=== PATIENT | female | born 1950 | race Caucasian/White ===

== ENCOUNTER 2018-05-11 06:16 | Inpatient (IN) ==
[2018-05-11] MEDS ORDERED: ATIVAN ONE (07:06)
[2018-05-11] MEDS ORDERED: ATIVAN IV ONE (07:10)
--- NOTE | 2018-05-11 07:24 | PROVIDER DOCUMENTATION ---
HPI-Neurological Disorder - General Chief Complaint: Seizure Stated Complaint: "seizure" Time Seen by Provider: 05/11/18 07:19 Unable to obtain history due to:: altered Allergies/Adverse Reactions: Patient Allergies Allergy/AdvReac Type Severity Reaction Status Date / Time amitriptyline Allergy Severe Unknown Verified 02/01/18 22:34 nicotine Allergy Unknown Verified 05/11/18 06:25 Home Medications: Home Medication List Medication Instructions Recorded Confirmed Last Taken Type Levothyroxine Sodium 75 mcg PO DAILY #30 tab 07/10/17 05/11/18 Unknown Rx Gabapentin [Neurontin] 200 mg PO BID #30 cap 09/09/17 05/11/18 Unknown Rx Pantoprazole [Protonix] 40 mg PO DAILY 02/01/18 05/11/18 Unknown History - History of Present Illness-Neuro Nature of Presenting Problem: Presents to the with EMS who states that patient had a seizure. No history was obtained from patient as upon the start of my shift EMS was gone and patient had a seizure and remained post ictal for long period afterwards. Per nursing staff, EMS stated patient does not havea history of seizures but is a chronic alcoholic. Review of Systems - Adult - REVIEW OF SYSTEMS - ADULT ROS:: unobtainable per condition Constitutional: reports: see HPI Past History - Adult - PAST MEDICAL HISTORY-ADULT Review of Records: reports: Old Records Reviewed, Nursing Assessment Review, Medications Reviewed Major Childhood Illnesses: reports: denies history Cardiovascular: reports: denies history Respiratory: reports: asthma, COPD Gastrointestinal: reports: denies history Obstetrical/Gynecological: reports: denies history Genitourinary: reports: denies history Musculoskeletal: reports: denies history, other (neuropathy) Neurological: reports: CVA, Seizures/Epilepsy Psychiatric: reports: depression, other (SI) Endocrine/Immune: reports: thyroid disorder Other Conditions: reports: denies history - PRIOR SURGERIES/PROCEDURES Surgical/Procedure History: reports: breast (biopsy), other (R oophrectomy) - IMMUNIZATION STATUS Childhood Immunizations: See Nurse Assessment Flu Vaccine: See Nurse Assessment - FAMILY HISTORY Family History: reviewed, not pertinent Physical Exam- Neurological - Physical Exam-Neuro Initial Vital Signs Reviewed: Yes General Appearance: other (actively seizing tonic clonic, then postictal. Smells like alcohol) Eye Exam: bilateral eye: normal inspection, PERRL HENMT: normocephalic/atraumatic Head Injury: no evidence of injury Neck: supple, normal inspection Respiratory: lungs clear Cardiovascular: regular rate, rhythm, tachycardia Abdominal Exam: normal bowel sounds, soft, distended Extremity: normal inspection Coordination/Gait: other (unable to obtain) Integumentary: warm/dry. negative: jaundice Psych/Mental Status: disheveled Progress - PLAN OF CARE/RESULTS Progress/Plan/Lab Results: Orders Category Date Time Status Admit - [facility] Routine AdmDCTranf 05/11/18 13:21 Active Cardiac Monitoring DIRECTED Care 05/11/18 08:16 Completed IV Insertion ORDERED Care 05/11/18 08:16 Completed Intake and Output-Strict ORDERED Care 05/11/18 13:21 Active Notify MD of + Sepsis Screen NOW Care 05/11/18 08:16 Completed Vital Signs Order Q1H Care 05/11/18 13:21 Completed Z-Document. for Tele Applied ORDERED Care 05/11/18 13:21 Active CHEST-PORTABLE [RAD] Stat Exams 05/11/18 07:[address] HEAD W/O CONTRAST [CT] Stat Exams 05/11/18 07:21 Completed ABG [RESP] Routine Lab 05/11/18 07:15 Completed ACETAMINOPHEN [TDM] Stat Lab 05/11/18 07:51 Completed ALCOHOL BLOOD Stat Lab 05/11/18 07:51 Completed BLOOD CULTURE [BLDCUL] Stat Lab 05/11/18 10:30 Results CBC WITH DIFF [HEME] Stat Lab 05/11/18 06:30 Completed CK PROFILE [SP CHEM] Stat Lab 05/11/18 07:31 Completed COMPREHENSIVE METABOLIC PANEL [CHEM] Stat Lab 05/11/18 07:51 Completed LACTATE, PLASMA [CHEM] Lab 05/11/18 10:30 Completed LACTATE, PLASMA [CHEM] Lab 05/11/18 14:20 Completed LACTATE, PLASMA [CHEM] Stat Lab 05/11/18 07:51 Completed MAGNESIUM [CHEM] Stat Lab 05/11/18 07:31 Completed PROTIME WITH INR [COAG] Stat Lab 05/11/18 07:51 Completed PTT [COAG] Stat Lab 05/11/18 07:51 Completed SALICYLATES [TDM] Stat Lab 05/11/18 07:51 Completed TROPONIN T Stat Lab 05/11/18 07:[address] W/POSS RFLX CULT [URINALYSIS] Stat Lab 05/11/18 08:35 Completed URINE CULTURE [RM] Routine Lab 05/11/18 09:20 [address] S[address]EN [address] Stat Lab 05/11/18 08:35 Completed 0.9% Sodium Chloride Inj [Ns] 1,000 ml Med 05/11/18 08:51 Discontinued IV 999 mls/hr CefTRIAXONE [Rocephin] 1 gm Med 05/11/18 09:27 Discontinued 0.9% Sodium Chloride Inj [Ns] 50 ml IV NOW Chlordiazepoxide [Librium] Med 05/11/18 10:00 Active 50 mg PO Q6H Lorazepam [Ativan] Med 05/11/18 07:06 Discontinued 2 mg .ROUTE .STK-MED ONE Mvi [M.v.i.-12] 10 ml Med 05/11/18 08:51 Discontinued Folic Acid 1 mg Magnesium Sulfate 1 gm Thiamine 100 mg 0.9% Sodium Chloride Inj [Ns] 1,000 ml IV NOW Oxygen Device Stat Oth 05/11/18 08:16 Completed Telemetry [OM.EQ] Routine Oth 05/11/18 13:21 Active Transfer/Admit Order [TRANSFER] Routine Transfer 05/11/18 09:55 Completed Patient with seizure likely due to alcohol withdrawal. She only has a previous history of 1 seizure in the past per EMS and EMR. Her alcohol level is down to 13, however she does smell of ETOH. Her LA is elevated to 9 but this is likely due to her seizure. She also has a UTI but I do not feel that she is acutely septic as she is afebrile, has no WBC and other vitals are stable. She was given 1L NS in the ED and started on a banana bag. She did require a dose of ativan here for her seziures. CT head is negative. Tox screen negative except for benzos which were given in the ED prior to collection of the urine. Spoke to Dr Garcia, boiler control technician hospitalist who accepted patient for admission. Other orders to be placed by their team. Result Diagrams: 05/12/18 05:22 05/12/18 05:22 - XRAY 1 XRAY Study: Chest Impression: See EMR Report (CHEST-PORTABLE - 05/11/2018 INDICATION: AMS COMPARISON: 02/02/2018 FINDINGS: The lungs are normally expanded and clear. Heart size and mediastinal contours are normal. No pneumothorax or pleural effusion. IMPRESSION: Negative exam. Electronically signed by Ruddy Silver 05/11/2018 8:15 AM) - CT/MRI 1 CT Study: Head Impression: See EMR Report (EXAM: CT HEAD W/O CONTRAST HISTORY: seizures, alcoholic TECHNIQUE: Images were obtained from the skull base to vertex without IV contrast as per standard protocol. COMPARISON: 03/12/2017 FINDINGS: Large left parietal encephalomalacia from prior infarct is again identified and unchanged. There is no evidence for acute hemorrhage or infarct by CT. There is atrophy and microvascular disease. There is an air-fluid level left maxillary sinus. No fracture is identified. IMPRESSION: Atrophy and microvascular disease. Stable left parietal encephalomalacia. Air-fluid level left maxillary sinus similar to prior. This exam was performed using automated exposure control, adjustment of mA or kV according to patient size, and/or use of iterative reconstruction technique.) Departure - Departure Date of Disposition Decision: 05/11/18 Time of Disposition Decision: 09:45 DIAGNOSIS: Alcohol withdrawal seizure, UTI (urinary tract infection), Lactic acidosis Disposition: ADMITTED INPATIENT 09 Certified Medical Emergency: Emergent Condition: Fair - Critical Care Note This patient required my direct & personal management of CC.: Yes Total Time (mins): 35 Critical Care Statement: This patient required my direct personal management to treat or rule out processes, the absence of which, could potentiallly result in sudden, clinically significant life or limb threatening deterioration. Attestation - Physician/ SHERIE Attestation Patient care was provided by Advanced Practice Provider:: No The physician spent face to face time with patient:: Yes Advanced Practice Provider documentation review:: Supervising physician onsite and consulted in the evaluation and care of this patient. The physician did have a face to face encounter with the patient.
[2018-05-11 07:48] LABS: BLOOD TYPE ARTERIAL; HCO3-(ACT) 18.6 mmoll (20.0-26.0); METHB 1.1 % (0.0-1.5); O2(CT) 16.6 mL/dL (15.0-23.0); O2HB 93.1 % (95.0-99.0); PCO2(98.6) 36 mmHg (35-45); PO2(98.6) 143 mmHg (60-100); SAMPLE BLOOD; SAO2 99.8 % (95.0-100.0); THB 12.5 g/dL (11.5-17.4)
[2018-05-11 07:50] LABS: ALLEN TEST NO; MODALITY CANNULA
[2018-05-11 08:09] LABS: BASO# 0.02 X1000 (0.0-0.2); BASO% 0.3 % (0.0-0.8); EOS# 0.02 X1000 (0.0-0.7); EOS% 0.3 % (0.0-10.0); IMM GRAN# 0.04 X1000 (0.0-0.04); IMM GRAN% 0.5 % (0.0-0.5); LYMPH# 0.52 X1000 (1.2-3.4); LYMPH% 6.5 % (20.5-51.1); MCH 35.6 PG (27-31); MCHC 36.8 g/dL (33-37); MONO# 1.01 X1000 (0.11-0.59); MONO% 12.7 % (1.7-9.3); MPV 9.4 FL (7.4-10.4); NEUT# 6.34 X1000 (1.4-6.5); NEUT% 79.7 % (42.2-75.2); PLT 145 X1000 (130-400); RBC 3.31 XMIL (4.2-5.4); RDW 12.3 % (11.5-14.5); WBC 8.05 X1000 (4.8-10.8)
--- NOTE | 2018-05-11 08:12 | Diag Imaging Result Doc PS360 ---
EXAM: CT HEAD W/O CONTRAST HISTORY: seizures, alcoholic TECHNIQUE: Images were obtained from the skull base to vertex without IV contrast as per standard protocol. COMPARISON: 03/12/2017 FINDINGS: Large left parietal encephalomalacia from prior infarct is again identified and unchanged. There is no evidence for acute hemorrhage or infarct by CT. There is atrophy and microvascular disease. There is an air-fluid level left maxillary sinus. No fracture is identified. IMPRESSION: Atrophy and microvascular disease. Stable left parietal encephalomalacia. Air-fluid level left maxillary sinus similar to prior. This exam was performed using automated exposure control, adjustment of mA or kV according to patient size, and/or use of iterative reconstruction technique. Electronically signed by Daniela Barrios 05/11/2018 8:10 AM
--- NOTE | 2018-05-11 08:17 | Diag Imaging Result Doc PS360 ---
CHEST-PORTABLE - 05/11/2018 INDICATION: AMS COMPARISON: 02/02/2018 FINDINGS: The lungs are normally expanded and clear. Heart size and mediastinal contours are normal. No pneumothorax or pleural effusion. IMPRESSION: Negative exam. Electronically signed by Ruddy Silver 05/11/2018 8:15 AM
[2018-05-11 08:39] LABS: AGAP 23; ALBUMIN 4.2 g/dL (3.5-5.0); ALKALINE PHOSPHATASE 115 U/L (32-104); BUN 2 mg/dL (8-22); CALCIUM 9.5 mg/dL (8.8-10.2); CHLORIDE 90 mmol/L (98-107); COSMO 262; CREATININE 0.4 mg/dL (0.5-0.9); ESTIMATED GFR > 60; GLUCOSE 117 mg/dL (70-104); GOT 139 U/L (10-30); GPT 69 U/L (10-36); POTASSIUM 3.2 mmol/L (3.5-5.1); SODIUM 132 mmol/L (136-145); TCO2 19 mmol/L (25-35); TOTAL BILIRUBIN < 0.15 mg/dL (0.20-1.00); TOTAL PROTEIN 7.2 g/dL (6.3-8.3)
[2018-05-11 08:47] LABS: ACETAMINOPHEN 0.3 ug/mL (10-30)
[2018-05-11] MEDS ORDERED: NS 1,000 ML IV ONE ×2 (08:51→11:49)
[2018-05-11] MEDS ORDERED: M.V.I.-12 10 ML, FOLIC ACID 1 MG, MAGNESIUM SULFATE 1 GM, THIAMINE 100 MG in NS 1,000 ML IV ONE (08:51)
[2018-05-11 09:16] LABS: BILIRUBIN URINE NEGATIVE (NEGATIVE); BLOOD URINE 2+ (NEGATIVE); CLARITY SL. CLOUDY (CLEAR); COLOR YELLOW; GLUCOSE URINE NEGATIVE (NEGATIVE); KETONE URINE TRACE mg/dL (NEGATIVE); LEUKOCYTES URINE 2+ (NEGATIVE); NITRITE URINE POSITIVE (NEGATIVE); PH URINE 6.5; PROTEIN URINE 1+(30 mg/dL) mg/dL (NEGATIVE); SP GRAVITY URINE 1.015; UROBILINOGEN URINE NORMAL
[2018-05-11 09:20] LABS: URINE BACTERIA 4+ /HFP; URINE EPITHELIAL CELLS <10 /HPF (<10); URINE SOURCE CATH; URINE WBC 20-40 /HPF (<10)
[2018-05-11 09:23] LABS: CK INDEX 2.8 (0.0-2.5); CK-MB 5.15 ng/mL (0.0-5.0)
[2018-05-11 09:24] LABS: UR AMPHETAMINES QUAL NONE DETECTED (NONE DETECT); UR BARBITUATES QUAL NONE DETECTED (NONE DETECT); UR BENZODIAZEPIN QUAL PRESUMPTIVE POSITIVE (NONE DETECT); UR CANNABINOIDS QUAL NONE DETECTED (NONE DETECT); UR COCAINE QUAL NONE DETECTED (NONE DETECT); UR METHADONE QUAL NONE DETECTED (NONE DETECT); UR METHAMPHETAMINE QUAL NONE DETECTED (NONE DETECT); UR OPIATES QUAL NONE DETECTED (NONE DETECT); UR OXYCODONE QUAL NONE DETECTED (NONE DETECT); UR PCP QUAL NONE DETECTED (NONE DETECT); UR PROPOXYPHENE QUAL NONE DETECTED (NONE DETECT); UR TCA QUAL NONE DETECTED (NONE DETECT)
[2018-05-11] MEDS ORDERED: ROCEPHIN 1 GM in NS 50 ML IV ONE (09:27)
[2018-05-11] MEDS: LIBRIUM PO SCH ×3 (10:50→21:04)
[2018-05-11 11:27] LABS: INR 0.94
[2018-05-11 11:28] LABS: PTT 28.1 Seconds (22.3-41.8)
[2018-05-11] MEDS ORDERED: ZOFRAN IV PRN (11:49)
[2018-05-11] MEDS ORDERED: DUONEB (A & A) INH PRN (11:49)
[2018-05-11 12:29] LABS: MAGNESIUM 2.2 mg/dL (1.5-2.7)
[2018-05-11 12:38] LABS: ACETONE SERUM NEGATIVE (NEGATIVE)
[2018-05-11 12:55] LABS: FREE T4 1.27 ng/dL (0.93-1.70); TSH 1.02 uIUmL (0.27-4.20)
--- NOTE | 2018-05-11 13:12 | HISTORY AND PHYSICAL ---
PRIMARY CARE PHYSICIAN: Dr. Silviano Garcia CHIEF COMPLAINT: Seizure. HISTORY OF PRESENT ILLNESS: Ms. Crocker is a 67-year-old female with a history of alcohol dependence, alcohol withdrawal seizures, previous stroke with right-sided hemiplegia, who presents with what appears to be a seizure. She is a poor historian, and there is no family at the bedside to assist with history gathering. She reports that this morning around 5:30, she was making breakfast and began to feel "strange" and fell to the ground and had what she believed to be a seizure. She did not lose bowel or bladder continence, but she said she did bite her tongue. She has also been complaining of some wheezing and shortness of breath with mild cough but nothing any worse than normal. She does have a history of alcohol dependence and alcohol withdrawal seizures. She states that she drank 5 beers yesterday and drinks 5 beers on a daily basis. When she got to the ER, her alcohol level was noted to be 13, and she had a significant lactic acidosis with metabolic acidosis. Head CT done in the ER did not show anything acute. Stable left encephalomalacia was noted. Because of her seizure and acidosis, we are going to put her in the ICU for the first 24 hours. She is currently hemodynamically stable. PAST MEDICAL HISTORY: 1. Alcohol withdrawal seizures in the past. 2. Alcohol dependence. 3. Nicotine dependence. 4. COPD. 5. Hypothyroidism. 6. Depression. 7. Right-sided hemiplegia secondary to previous stroke. PAST SURGICAL HISTORY: She has had a breast biopsy and ovarian surgery. SOCIAL HISTORY: She smokes a pack a day, drinks 5 beers a day. Denies drug use. She is single and has 2 roommates. FAMILY HISTORY: Noncontributory. REVIEW OF SYSTEMS: A 14-point review of systems is obtained and found to be negative with the exception of the HPI. ALLERGIES: Amitriptyline and nicotine, although she smokes a pack a day. HOME MEDICATIONS: Protonix 40 mg daily, Synthroid 75 mcg daily, Neurontin 200 mg p.o. b.i.d. PHYSICAL EXAMINATION: VITAL SIGNS: Blood pressure is 134/76, heart rate is 96, respiratory rate is 18, O2 saturation is 99% on 3 L. GENERAL: A chronically ill, disheveled, bordering on cachectic appearing 67-year-old female lying in hospital bed, in no acute distress. NEUROLOGICAL: She does appear to be somewhat postictal, but she is oriented. She follows commands with right upper extremity weakness at 3/5. She has generalized weakness at 4/5 in all other extremities. HEENT: Head is atraumatic and normocephalic. Her pupils are equal and sluggish to light response bilaterally. Oral mucosa is dry. There is no blood noted in the oropharynx. No obvious intraoral injury. NECK: Supple. Trachea is midline. There is no JVD. CHEST: Diminished at the bases but clear bilaterally. CARDIOVASCULAR: Regular rate and rhythm. S1 and S2 noted. No appreciable murmurs. GASTROINTESTINAL: Soft, nontender and nondistended. Bowel sounds positive. EXTREMITIES: No edema. Pulses 1+ bilaterally. DIAGNOSTIC DATA: Head CT shows left encephalomalacia. Chest x-ray shows COPD. WBC is 8.05, hemoglobin 12, hematocrit 36, platelet count 145. INR is 0.94. ABG on nasal cannula shows pH of 7.3, CO2 of 36, O2 is 143, bicarbonate 18.6, carboxyhemoglobin 5.6, lactic acid 9.9. Sodium is 132, potassium 3.2, chloride 90, CO2 is 19, anion gap 23, BUN is 2, creatinine 0.4, glucose 117, magnesium 1.8. Total bilirubin 0.15, AST is 139, ALT is 69, alkaline phosphatase 115. CK is 181. Troponin less than 0.010. Lactic acid in the serum is 0.6. UA shows nitrite positive UTI. Toxicology is positive for benzodiazepines. Alcohol level is 13. ASSESSMENT AND PLAN: 1. Alcohol withdrawal seizure. We will put the patient in ICU, put her on high dose Librium taper with p.r.n. Ativan as needed. We will encourage alcohol cessation. 2. Urinary tract infection. Continue Rocephin and IV fluids. 3. Hypovolemic hyponatremia. We will continue IV fluids. She is volume depleted. 4. Hypokalemia. Magnesium is 1.8. Potassium has been replaced. We will follow electrolytes daily, repleting as necessary. 5. Elevated liver function tests. Likely secondary to alcohol use. She denies any abdominal pain, nausea or vomiting at this time. We will monitor daily CMP. 6. Metabolic acidosis. Likely secondary to lactic acidosis which has cleared. Lactic acidosis is likely secondary to her seizures. There is no notice of systemic infection at this time. She does have a UTI which we are treating. 7. Hypothyroidism. We will check a TSH and free T4 and continue her Synthroid. 8. Alcohol and nicotine dependence. We have advised the patient to quit smoking and to quit drinking. We will write a nicotine patch and p.r.n. Ativan. Daily banana bag and Librium taper. 9. DVT prophylaxis with SCDs. Further recommendations to follow. Dictated by AFSHIN Horta for Silviano Garcia MD cc: AFSHIN Horta MD MTDD
[2018-05-11 15:04] LABS: CK INDEX 2.7 (0.0-2.5); CK-MB 8.84 ng/mL (0.0-5.0)
[2018-05-11] MEDS: DUONEB (A & A) INH SCH ×3 (15:04→23:26)
--- NOTE | 2018-05-11 19:38 | OPERATIVE NOTE ---
PROCEDURE DATE: 05/11/2018 ADDENDUM: Patient seen and examined by myself. Full note dictated and discussed with nurse practitioner. Patient presented to the hospital, unfortunately as she has many times in the past, after binge drinking. Her alcohol level is still minimally elevated this morning. She states she has not drank since yesterday. We will admit her to the hospital. She had a seizure in the ER. Placed her on high-dose Librium taper and will follow. Unfortunately, her seizures are alcohol withdrawal related. cc: Silviano Garcia MD
[2018-05-11 19:45] LABS: CK INDEX 2.4 (0.0-2.5); CK-MB 7.42 ng/mL (0.0-5.0)
[2018-05-11] MEDS: ATIVAN IV PRN (20:11)
[2018-05-12] MEDS: ATIVAN IV PRN ×3 (02:33→19:56)
[2018-05-12] MEDS: LIBRIUM PO SCH ×4 (03:12→21:41)
[2018-05-12] MEDS: DUONEB (A & A) INH SCH ×3 (03:39→11:34)
[2018-05-12 06:21] LABS: BASO# 0.01 X1000 (0.0-0.2); BASO% 0.2 % (0.0-0.8); HEMATOCRIT 30.5 % (37.0-47.0); HEMOGLOBIN 10.6 g/dL (12.0-16.0); IMM GRAN# 0.02 X1000 (0.0-0.04); IMM GRAN% 0.4 % (0.0-0.5); LYMPH# 0.91 X1000 (1.2-3.4); LYMPH% 17.8 % (20.5-51.1); MCH 35.2 PG (27-31); MCHC 34.8 g/dL (33-37); MCV 101.3 FL (81-99); MONO# 0.93 X1000 (0.11-0.59); MONO% 18.2 % (1.7-9.3); MPV 10.1 FL (7.4-10.4); NEUT# 3.15 X1000 (1.4-6.5); NEUT% 61.4 % (42.2-75.2); PLT 144 X1000 (130-400); RBC 3.01 XMIL (4.2-5.4); WBC 5.12 X1000 (4.8-10.8)
[2018-05-12] MEDS ORDERED: PROTONIX PO SCH (07:00)
[2018-05-12] MEDS ORDERED: SYNTHROID PO SCH (07:00)
[2018-05-12 07:29] LABS: AGAP 11; ALBUMIN 3.2 g/dL (3.5-5.0); ALKALINE PHOSPHATASE 100 U/L (32-104); BUN 4 mg/dL (8-22); CALCIUM 8.1 mg/dL (8.8-10.2); COSMO 270; CREATININE 0.4 mg/dL (0.5-0.9); ESTIMATED GFR > 60; GLUCOSE 84 mg/dL (70-104); GOT 80 U/L (10-30); GPT 45 U/L (10-36); MAGNESIUM 1.6 mg/dL (1.5-2.7); POTASSIUM 2.9 mmol/L (3.5-5.1); SODIUM 137 mmol/L (136-145); TCO2 22 mmol/L (25-35); TOTAL PROTEIN 5.5 g/dL (6.3-8.3)
[2018-05-12 07:35] LABS: CHLORIDE 104 mmol/L (98-107)
[2018-05-12] MEDS ORDERED: KLOR-CON PO ONE (08:05)
--- NOTE | 2018-05-12 22:32 | PROGRESS NOTE ---
DATE: 05/12/2018 SUBJECTIVE: Patient is awake. She is in no current distress. She denies any complaints, although thinks that she has been in the hospital for several days instead of just two. PHYSICAL EXAMINATION: Vital Signs: Temperature 98, pulse 109, respiratory 20, BP 92/71. General: Patient is confused, disoriented. She does not know how long she has been in the hospital. She does answer questions, although is easily confused. HEENT: Normocephalic. Neck: Supple. Cardiovascular: Regular rate. Chest: Clear. Abdomen: Soft. Extremities: Moves all extremities. Neurologic: No focal changes. She is still confused. She has tremors. ASSESSMENT: 1. Acute alcohol withdrawal. We will continue Librium taper. 2. Alcohol withdrawal seizure. 3. Probable urinary tract infection. 4. Hypokalemia. Continue IV fluids. 5. Hyponatremia, improved. 6. Hypokalemia, improved. PLAN: We will continue patient in the hospital. Continue to monitor her for alcohol withdrawal as well as seizures. Further orders as needed. cc: Silviano Garcia MD
[2018-05-13] MEDS: ATIVAN IV PRN ×4 (02:27→23:55)
[2018-05-13] MEDS: LIBRIUM PO SCH ×2 (03:24→09:58)
[2018-05-13 06:00] LABS: BASO# 0.02 X1000 (0.0-0.2); BASO% 0.4 % (0.0-0.8); EOS# 0.22 X1000 (0.0-0.7); EOS% 4.1 % (0.0-10.0); HEMATOCRIT 32.4 % (37.0-47.0); IMM GRAN# 0.02 X1000 (0.0-0.04); IMM GRAN% 0.4 % (0.0-0.5); LYMPH# 1.04 X1000 (1.2-3.4); LYMPH% 19.5 % (20.5-51.1); MCH 34.6 PG (27-31); MCV 101.9 FL (81-99); MONO# 0.96 X1000 (0.11-0.59); MPV 10.5 FL (7.4-10.4); NEUT# 3.07 X1000 (1.4-6.5); NEUT% 57.6 % (42.2-75.2); PLT 135 X1000 (130-400); RBC 3.18 XMIL (4.2-5.4); RDW 12.9 % (11.5-14.5); WBC 5.33 X1000 (4.8-10.8)
[2018-05-13] MEDS ORDERED: ROCEPHIN 1 GM in NS 50 ML IV SCH (06:45)
[2018-05-13 07:07] LABS: AGAP 8; ALBUMIN 3.4 g/dL (3.5-5.0); ALKALINE PHOSPHATASE 106 U/L (32-104); BUN 3 mg/dL (8-22); CALCIUM 9.5 mg/dL (8.8-10.2); CHLORIDE 102 mmol/L (98-107); COSMO 266; CREATININE 0.4 mg/dL (0.5-0.9); GLUCOSE 80 mg/dL (70-104); GOT 61 U/L (10-30); GPT 40 U/L (10-36); MAGNESIUM 1.5 mg/dL (1.5-2.7); POTASSIUM 4.2 mmol/L (3.5-5.1); SODIUM 135 mmol/L (136-145); TCO2 25 mmol/L (25-35); TOTAL PROTEIN 5.8 g/dL (6.3-8.3)
[2018-05-13] MEDS ORDERED: ATIVAN IV ONE (12:30)
[2018-05-13] MEDS ORDERED: NS 1,000 ML IV ONE (12:32)
[2018-05-13] MEDS: M.V.I.-12 10 ML, FOLIC ACID 1 MG, MAGNESIUM SULFATE 1 GM, THIAMINE 100 MG in NS 1,000 ML IV SCH (14:39)
[2018-05-13] MEDS ORDERED: HALDOL IV PRN (17:59)
[2018-05-13] MEDS: BENADRYL IV PRN ×2 (20:20→23:55)
[2018-05-13] MEDS: HALDOL IV PRN ×2 (20:20→23:55)
--- NOTE | 2018-05-13 22:50 | PROGRESS NOTE ---
DATE: 05/13/2018 SUBJECTIVE: The patient has no new complaints. She is upset that the staff is hiding pretzels from her. She also appears to have other hallucinatory thoughts. PHYSICAL EXAMINATION: Vital signs: Temperature 97.5 degrees, pulse 77, respiratory 18, BP 101/62. General: The patient is a very unfortunate individual who has continued to drink at home despite multiple previous complications due to her alcoholism. She currently is awake. She is easily confused. HEENT: Normocephalic. Neck: Supple. Cardiovascular: Regular rate. Chest: Clear. Abdomen: Soft. Extremities: Moves all extremities. ASSESSMENT: 1. Acute alcohol withdrawal seizures, stable. 2. Gram-negative harley urinary tract infection. 3. Hyponatremia, improved. 4. Hypokalemia, improved. 5. Chronic alcoholism. 6. Metabolic acidosis. 7. Hypothyroidism. PLAN: The patient will be continued in the hospital although will transition to the floor. We will continue Librium taper. Further orders as needed. cc: Silviano Garcia MD
[2018-05-14] MEDS ORDERED: NS 50 ML ONE (05:53)
[2018-05-14] MEDS: PRILOSEC PO SCH (06:42)
[2018-05-14 06:59] LABS: BASO# 0.02 X1000 (0.0-0.2); BASO% 0.4 % (0.0-0.8); EOS# 0.21 X1000 (0.0-0.7); EOS% 4.5 % (0.0-10.0); HEMATOCRIT 35.4 % (37.0-47.0); HEMOGLOBIN 12.3 g/dL (12.0-16.0); IMM GRAN# 0.02 X1000 (0.0-0.04); IMM GRAN% 0.4 % (0.0-0.5); LYMPH# 0.81 X1000 (1.2-3.4); LYMPH% 17.3 % (20.5-51.1); MCH 35.4 PG (27-31); MCHC 34.7 g/dL (33-37); MONO# 0.58 X1000 (0.11-0.59); MONO% 12.4 % (1.7-9.3); MPV 10.4 FL (7.4-10.4); NEUT# 3.05 X1000 (1.4-6.5); PLT 162 X1000 (130-400); RBC 3.47 XMIL (4.2-5.4); RDW 13.2 % (11.5-14.5); WBC 4.69 X1000 (4.8-10.8)
[2018-05-14 07:20] LABS: AGAP 8; ALBUMIN 3.8 g/dL (3.5-5.0); ALKALINE PHOSPHATASE 96 U/L (32-104); BUN 4 mg/dL (8-22); CALCIUM 9.7 mg/dL (8.8-10.2); CHLORIDE 105 mmol/L (98-107); COSMO 274; CREATININE 0.5 mg/dL (0.5-0.9); ESTIMATED GFR > 60; GLUCOSE 88 mg/dL (70-104); GOT 60 U/L (10-30); GPT 42 U/L (10-36); POTASSIUM 3.8 mmol/L (3.5-5.1); SODIUM 139 mmol/L (136-145); TCO2 26 mmol/L (25-35); TOTAL PROTEIN 6.7 g/dL (6.3-8.3)
[2018-05-14] MEDS ORDERED: ROCEPHIN 1 GM in NS 50 ML IV SCH (08:00)
[2018-05-14] MEDS: LIBRIUM PO SCH ×3 (09:42→18:16)
[2018-05-14] MEDS: M.V.I.-12 10 ML, FOLIC ACID 1 MG, MAGNESIUM SULFATE 1 GM, THIAMINE 100 MG in NS 1,000 ML IV SCH (14:45)
[2018-05-14] MEDS: HALDOL IV PRN ×2 (15:46→19:44)
[2018-05-14] MEDS: ATIVAN IV PRN ×2 (15:46→19:43)
[2018-05-14] MEDS: BENADRYL IV PRN ×2 (15:47→19:44)
[2018-05-14] MEDS: NICODERM PATCH TD SCH (16:50)
--- NOTE | 2018-05-15 00:15 | PROGRESS NOTE ---
DATE: 05/14/2018 SUBJECTIVE: Patient has no current complaints. She is confused at times. PHYSICAL EXAMINATION: Vital Signs: Reviewed. Temperature 97.5 degrees, pulse 60, respiratory 18, BP 107/83. General: Patient is awake, alert, currently in no distress. HEENT: Normocephalic. Neck: Supple. Cardiovascular: Regular rate. Chest: Clear. Abdomen: Soft. Extremities: Moves all extremities. Neurologic: She is awake, alert, but disoriented. ASSESSMENT: 1. Escherichia coli urinary tract infection resistant to Levaquin, otherwise sensitive. 2. Alcohol withdrawal syndrome, improved. We will continue to wean Librium. 3. Hyponatremia, improved. 4. Hypokalemia, resolved. cc: Silviano Garcia MD
[2018-05-15] MEDS: PRILOSEC PO SCH ×2 (06:49→08:09)
[2018-05-15] MEDS ORDERED: HALDOL IM PRN (06:54)
[2018-05-15] MEDS ORDERED: BENADRYL IM PRN (06:54)
[2018-05-15] MEDS ORDERED: ATIVAN IM PRN (06:54)
[2018-05-15] MEDS: LIBRIUM PO SCH (08:08)
[2018-05-15] MEDS: SEPTRA DS PO SCH ×2 (08:08→20:57)
[2018-05-15] MEDS: NICODERM PATCH TD SCH (08:09)
--- NOTE | 2018-05-15 16:05 | PROGRESS NOTE ---
DATE: 05/15/2018 SUBJECTIVE: Patient is more alert and awake this morning. She did have an episode of sundowning last night. OBJECTIVE: Vital Signs: On physical examination, vital signs reviewed. Temperature 97.7 degrees, pulse 89, respiratory rate 20, BP 133/64. General: Patient is in no current respiratory distress. HEENT: Normocephalic. Neck: Supple. CV: Regular rate. Chest: Clear. Abdomen: Soft. Extremities: Moves all extremities, although she has significant generalized weakness. ASSESSMENT: 1. Acute alcohol withdrawal, resolved. Patient is no longer in alcohol withdrawal. We will continue to wean off Librium. 2. Generalized weakness. The patient will need rehabilitation on discharge. 3. Chronic alcohol dependence. 4. Hypothyroidism. 5. Chronic depression. 6. Right-sided weakness secondary to previous stroke. PLAN: We will continue patient in the hospital. She does have an Escherichia coli urinary tract infection. Her IV has come out. We will change her over to Bactrim. Wean her Librium. Continue physical therapy. Further orders as needed. cc: Silviano Garcia MD
[2018-05-15] MEDS: M.V.I.-12 10 ML, FOLIC ACID 1 MG, MAGNESIUM SULFATE 1 GM, THIAMINE 100 MG in NS 1,000 ML IV SCH (17:59)
[2018-05-15] MEDS ORDERED: LIBRIUM PO SCH (21:00)
[2018-05-16] MEDS: PRILOSEC PO SCH (06:36)
[2018-05-16] MEDS: NICODERM PATCH TD SCH (08:35)
[2018-05-16] MEDS: LIBRIUM PO SCH (08:35)
[2018-05-16] MEDS: SEPTRA DS PO SCH ×2 (08:35→21:04)
--- NOTE | 2018-05-16 16:59 | PROGRESS NOTE ---
DATE: 05/11/2018 SUBJECTIVE: The patient is currently awake, alert. She is in no distress. She has no new complaints. PHYSICAL EXAMINATION: Vital Signs: Reviewed. Temp 98 degrees, pulse 96, respiratory 18, BP 95/62. General: Patient is awake, alert. She is still very frail and has generalized weakness. No focal weakness. HEENT: Normocephalic. Neck: Supple. CARDIOVASCULAR: Regular rate. Chest: Clear, nonlabored. Abdomen: Soft, nondistended. Extremities: Generalized weakness. Neurologic: No focal changes. ASSESSMENT: 1. Acute alcohol withdrawal syndrome currently resolved. She is no longer in alcohol withdrawal. 2. Chronic failure to thrive. 3. Generalized weakness. 4. Chronic alcoholism. 5. Chronic depression. PLAN: We will continue patient in the hospital. We will continue to wean Librium down to 25 daily. We will continue Bactrim for her Escherichia coli ESBL negative UTI and will follow. cc: Silviano Garcia MD
[2018-05-16] MEDS: TYLENOL PO PRN (22:06)
[2018-05-17] MEDS: PRILOSEC PO SCH (06:24)
[2018-05-17] MEDS: SEPTRA DS PO SCH ×2 (08:10→22:04)
[2018-05-17] MEDS: LIBRIUM PO SCH (08:10)
[2018-05-17] MEDS: NICODERM PATCH TD SCH (08:11)
[2018-05-17] MEDS: TYLENOL PO PRN (09:02)
--- NOTE | 2018-05-17 17:44 | PROGRESS NOTE ---
DATE: 05/17/2018 SUBJECTIVE: Patient has no complaints other the fact she notes she is still generally weak, fatigued, she is having difficulty sitting up. PHYSICAL: Temperature 98 degrees, pulse 68, respiratory 18, BP 115/64.General: Patient is awake, alert, she is in no current respiratory distress but she is quite frail in appearance and very weak. She has no focal weakness. HEENT: Normocephalic. Neck: Supple. CV: Regular rate. Chest: Clear nonlabored. Abdomen: Soft, nondistended. Extremities: Moves all extremities although generalized weakness. ASSESSMENT: 1. Acute alcohol withdrawal syndrome currently is stable. She is in no further risk of alcohol withdrawal. We will continue to wean her Librium . 2. Generalized weakness with adult failure to thrive . 3. Escherichia coli extended spectrum beta-lactamase negative urinary tract infection. She currently on Bactrim should consider treatment for 3 more days and then she be able to stop. PLAN: Will continue counseling patient, hopefully she can transfer to rehab over the next day or 2. cc: Silviano Garcia MD
[2018-05-18] MEDS: PRILOSEC PO SCH (06:05)
[2018-05-18 07:49] LABS: HEMATOCRIT 33.1 % (37.0-47.0); HEMOGLOBIN 11.5 g/dL (12.0-16.0); MCH 35.1 PG (27-31); MCHC 34.7 g/dL (33-37); MCV 100.9 FL (81-99); MPV 11.1 FL (7.4-10.4); RBC 3.28 XMIL (4.2-5.4); RDW 12.6 % (11.5-14.5); WBC 4.96 X1000 (4.8-10.8)
[2018-05-18 08:15] LABS: AGAP 11; ALBUMIN 3.6 g/dL (3.5-5.0); ALKALINE PHOSPHATASE 92 U/L (32-104); BUN 3 mg/dL (8-22); CALCIUM 8.8 mg/dL (8.8-10.2); CHLORIDE 102 mmol/L (98-107); COSMO 266; CREATININE 0.5 mg/dL (0.5-0.9); ESTIMATED GFR > 60; GLUCOSE 83 mg/dL (70-104); GOT 46 U/L (10-30); GPT 38 U/L (10-36); MAGNESIUM 1.6 mg/dL (1.5-2.7); POTASSIUM 4.1 mmol/L (3.5-5.1); SODIUM 135 mmol/L (136-145); TCO2 22 mmol/L (25-35); TOTAL PROTEIN 6.7 g/dL (6.3-8.3)
[2018-05-18] MEDS: SEPTRA DS PO SCH (10:35)
[2018-05-18] MEDS: NICODERM PATCH TD SCH (10:35)
[2018-05-18] MEDS: LIBRIUM PO SCH (10:35)
--- NOTE | 2018-05-18 12:10 | DISCHARGE SUMMARY ---
ADMISSION DATE: 05/11/2018 DISCHARGE DATE: 05/18/2018 CONSULTATIONS: None. PERTINENT PROCEDURES: Head CT: Atrophy and microvascular disease, stable left parietal encephalomalacia, air-fluid level left maxillary sinus, similar to prior. Chest x-ray: Negative exam. DISCHARGE DIAGNOSES: 1. Acute alcohol withdrawal syndrome, currently stable. Patient is at risk of alcohol withdrawal. She was placed on a Librium taper. 2. Generalized weakness with adult failure to thrive. Continue regular diet. Physical therapy. 3. Escherichia coli urinary tract infection. Currently on Bactrim p.o. Will be 3 more days and discontinue. 4. Hypokalemia, resolved. 5. Elevated liver function tests have trended down. 6. Metabolic acidosis secondary to lactic acidosis, which has cleared. 7. Hypothyroidism. Continue Synthroid. 8. Alcohol and nicotine dependence. The patient was educated daily on smoking cessation as well as the means to quit and avoidance of alcohol. She has received daily banana bags and again placed on Librium taper. HOSPITAL COURSE: Briefly, Ms. Crocker is a 67-year-old female with a history of alcohol dependence, alcohol withdrawal seizures, previous stroke with right-sided hemiplegia, who presented to the ED with what appeared to be a seizure. Patient was a poor historian with no family. She reported on the day of admission on 05/11/2018 she felt strange at breakfast and fell to the ground and had what she believed to be a seizure. She did not lose any bowel or bladder continence, but she did bite her tongue. She had drunk 5 beers the day prior and drinks 5 beers on a daily basis. When she got to the ED, her alcohol level was 13. She has significant lactic acidosis and metabolic acidosis. Head CT was negative. She was monitored in the ICU for 24 hours and now is hemodynamically stable. Treated for urinary tract infection. Repleted electrolyte imbalances. She did have elevated liver function tests secondary to alcohol use. Her levels have trended down. Her metabolic and lactic acidoses have cleared. She has been on a Librium taper, which we will discontinue today and continue 3 more days of Bactrim for her E coli urinary tract infection. She has had a stable hospital course and is clinically stable for discharge to rehabilitation today. Temperature is 98.1 degrees, heart rate 66, respirations 16, blood pressure 107/56, O2 is 97% on room air. DISCHARGE DIET: Regular with snacks t.i.d. DISCHARGE MEDICATIONS: 1. Protonix 40 mg p.o. daily. 2. Synthroid 75 mcg p.o. daily. 3. Neurontin 200 mg p.o. b.i.d. 4. Bactrim DS 1 each p.o. b.i.d. for 3 more days. 5. Tylenol 650 mg p.o. q.6 h. p.r.n. pain. DISPOSITION: Ms. Crocker is being discharged to her choice [facility] at her [facility]. DISCHARGE INSTRUCTIONS: She is to continue with physical therapy and take all medications as prescribed. FOLLOW-UP: 1. Follow up with her primary care provider. 2. She can return to the ED or call 911 for any worsening of symptoms. Dictated by AFSHIN Das for Tayo Qureshi MD cc: Tayo Qureshi MD
[2018-05-18 15:48] VITALS: BP 92/53
[2018-05-18] MEDS ORDERED: NEURONTIN PO SCH (21:00)
--- NOTE | 2018-05-19 07:25 | DISCHARGE SUMMARY ---
ADMISSION DATE: 05/11/2018 DISCHARGE DATE: 05/18/2018 DISCHARGE ADDENDUM NOTE: The patient is sitting up in bed. She seems weak, but she is oriented, although she says she can completely remember all of her phone numbers. In any case, she is looking well and completed her Librium taper. She has E. Coli UTI. It is sensitive to Bactrim, which is what she is being discharged on. Full note discharge summary dictated per Yara Montoya. The patient looks well. On exam, lungs are clear. Abdominal exam is benign. TIME SPENT: 32 minute discharge. Plan for transfer to rehab when bed available which is likely going to be sometime today. cc: Tayo Qureshi MD
== END 2018-05-18 18:00 | DRG 897 ==
LOC: P.ED 06:16 → P.EDIPHOLD 10:03 → SUATTDRO 10:03 → P.ICU 12:00 → P.MEDSURG 05-13 10:13
PROVIDERS: ATTEND Internal Medicine
CPT/HCPCS: 51702; 70450; 71010; 71045; 80053; 80104; 80196; 80301; 80305; 80307; 80320; 80324; 80329; 81001; 82003; 82009; 82055; 82550; 82553; 82607; 82746; 82805; 83605; 83735; 84439; 84443; 84484; 85025; 85027; 85610; 85730; 87040; 87077; 87088; 87186; 94640; 94761; 96365; 96368; 96375; 97116; 97163; 99285; A9270; G0431; G0434; G0477; G0480; G6038; G6039; G6040; J0696; J1200; J1630; J2060; J3411; J3475; J7030

== ENCOUNTER 2019-04-13 06:51 | Inpatient (IN) ==
[2019-04-13 07:29] LABS: BASO# 0.01 X1000 (0.0-0.2); BASO% 0.1 % (0.0-0.8); EOS# 0.09 X1000 (0.0-0.7); EOS% 1.2 % (0.0-10.0); HEMATOCRIT 45.4 % (37.0-47.0); HEMOGLOBIN 15.5 g/dL (12.0-16.0); IMM GRAN# 0.04 X1000 (0.0-0.04); IMM GRAN% 0.5 % (0.0-0.5); LYMPH# 1.58 X1000 (1.2-3.4); LYMPH% 21.2 % (20.5-51.1); MCH 33.7 PG (27-31); MCHC 34.1 g/dL (33-37); MCV 98.7 FL (81-99); MONO# 0.82 X1000 (0.11-0.59); MPV 12.1 FL (7.4-10.4); NEUT# 4.91 X1000 (1.4-6.5); PLT 239 X1000 (130-400); RDW 11.6 % (11.5-14.5); WBC 7.45 X1000 (4.8-10.8)
[2019-04-13 07:30] LABS: INR 0.92; PROTIME 12.8 Seconds (11.0-16.0)
[2019-04-13 07:31] LABS: PTT 27.4 Seconds (22.3-41.8)
[2019-04-13 07:36] LABS: AGAP 16; ALBUMIN 4.5 g/dL (3.5-5.0); ALKALINE PHOSPHATASE 118 U/L (32-104); BUN 5 mg/dL (8-22); CALCIUM 9.6 mg/dL (8.8-10.2); CHLORIDE 92 mmol/L (98-107); COSMO 260; CREATININE 0.5 mg/dL (0.5-0.9); ESTIMATED GFR > 60; GLUCOSE 100 mg/dL (70-104); GOT 32 U/L (10-30); GPT 19 U/L (10-36); POTASSIUM 3.8 mmol/L (3.5-5.1); SODIUM 131 mmol/L (136-145); TCO2 23 mmol/L (25-35); TOTAL PROTEIN 8.4 g/dL (6.3-8.3)
[2019-04-13 07:37] LABS: URINE SOURCE CLEAN CATCH
[2019-04-13 07:41] LABS: BILIRUBIN URINE NEGATIVE (NEGATIVE); BLOOD URINE NEGATIVE (NEGATIVE); COLOR YELLOW; GLUCOSE URINE NEGATIVE (NEGATIVE); KETONE URINE NEGATIVE (NEGATIVE); LEUKOCYTES URINE NEGATIVE (NEGATIVE); NITRITE URINE NEGATIVE (NEGATIVE); PH URINE 6.5; PROTEIN URINE NEGATIVE (NEGATIVE); SP GRAVITY URINE 1.008; TURBIDITY URINE CLEAR (CLEAR); UR EPITHELIAL CELLS <10 /HPF (<10); URINE BACTERIA NEGATIVE /HPF; URINE RBC <10 /HPF (<10); URINE WBC <10 /HPF (<10); UROBILINOGEN URINE NORMAL (NORMAL)
[2019-04-13 07:50] LABS: UR AMPHETAMINES QUAL NONE DETECTED (NONE DETECT); UR BARBITUATES QUAL NONE DETECTED (NONE DETECT); UR BENZODIAZEPIN QUAL PRESUMPTIVE POSITIVE (NONE DETECT); UR CANNABINOIDS QUAL NONE DETECTED (NONE DETECT); UR COCAINE QUAL NONE DETECTED (NONE DETECT); UR METHADONE QUAL NONE DETECTED (NONE DETECT); UR METHAMPHETAMINE QUAL NONE DETECTED (NONE DETECT); UR OPIATES QUAL NONE DETECTED (NONE DETECT); UR OXYCODONE QUAL NONE DETECTED (NONE DETECT); UR PCP QUAL NONE DETECTED (NONE DETECT); UR PROPOXYPHENE QUAL NONE DETECTED (NONE DETECT); UR TCA QUAL NONE DETECTED (NONE DETECT)
[2019-04-13] MEDS ORDERED: NS 1,000 ML IV ONE (08:04)
--- NOTE | 2019-04-13 08:07 | Diag Imaging Result Doc PS360 ---
EXAM: CT HEAD W/O CONTRAST - 04/13/2019 HISTORY: left hand weakness TECHNIQUE: CT head without contrast COMPARISON: 01/16/2019 FINDINGS: There is encephalomalacia consistent with old infarct at the left frontoparietal parasagittal region similar to prior. There is an old lacunar infarct at the right upper cerebellum similar to prior. There are chronic microvascular ischemic changes. There is no indication of recent infarct, although acute infarcts may not be immediately visible. There is no evidence of intracranial hemorrhage, mass effect, or midline shift. There is no evidence of skull fracture. There is mild paranasal sinus disease noted at the left maxillary sinus. IMPRESSION: Chronic ischemic changes, including old left frontoparietal region infarct, similar to prior. No visible acute intracranial abnormality. No hemorrhage or mass effect. Mild paranasal sinus disease at the left maxillary sinus. This exam was performed using automated exposure control, adjustment of mA or kV according to patient size, and/or use of iterative reconstruction technique. Electronically signed by Mauro Sam 04/13/2019 8:05 AM
--- NOTE | 2019-04-13 08:10 | PROVIDER DOCUMENTATION ---
HPI-Neurological Disorder - General Chief Complaint: Weakness Stated Complaint: Weakness Time Seen by Provider: 04/13/19 07:03 Source: patient Unable to obtain history due to:: other (very vague historian, no family at be dside) Allergies/Adverse Reactions: Patient Allergies Allergy/AdvReac Type Severity Reaction Status Date / Time amitriptyline Allergy Severe Unknown Verified 03/01/19 18:14 Home Medications: Home Medication List Medication Instructions Recorded Confirmed Last Taken Type Levothyroxine Sodium 75 mcg PO DAILY #30 tab 07/10/17 03/01/19 Unknown Rx Gabapentin [Neurontin] 200 mg PO BID #30 cap 09/09/17 02/03/19 Unknown Rx Chlordiazepoxide [Librium] 25 mg PO Q6HR #20 cap 02/03/19 Unknown Rx Gabapentin [Neurontin] 200 mg PO BID #20 cap 03/01/19 Unknown Rx - History of Present Illness-Neuro Nature of Presenting Problem: Presents to the with complaints of left sided arm and hand numbness. She states that it started this morning or last night but she cannot tell me a time. She states she is concerned she is having another stroke and states she has residual right sided deficits from it. She states she is not numb anywhere else but upon further exam when asked to smile she then tell me that her lips are numb. She is inconsistent with her story and symptoms. No family at bedside. She does have a history of alcohol abuse but states that she has not been drinking for a while. Onset/Duration: reports: unsure Review of Systems - Adult - REVIEW OF SYSTEMS - ADULT ROS:: limited per patient and vague hsitorian Constitutional: reports: see HPI Eyes: reports: no symptoms reported Ears, Nose, Mouth & Throat: reports: no symptoms reported Cardiovascular: reports: no symptoms reported Respiratory: reports: no symptoms reported Gastrointestinal: reports: no symptoms reported Genitourinary: reports: no symptoms reported Musculoskeletal: reports: no symptoms reported Integumentary: reports: no symptoms reported Neurological: reports: see HPI, numbness Psychiatric: reports: no symptoms reported Endocrine: reports: no symptoms reported Hematologic/Lymphatic: reports: no symptoms reported Allergic/Immunologic: reports: no symptoms reported All Other Systems: Reviewed and Negative Past History - Adult - PAST MEDICAL HISTORY-ADULT Review of Records: reports: Old Records Reviewed Major Childhood Illnesses: reports: denies history Cardiovascular: reports: denies history Respiratory: reports: asthma, COPD Gastrointestinal: reports: denies history Obstetrical/Gynecological: reports: denies history Genitourinary: reports: denies history Musculoskeletal: reports: denies history, other (neuropathy) Neurological: reports: CVA, Seizures/Epilepsy Psychiatric: reports: depression, other (SI) Endocrine/Immune: reports: thyroid disorder Other Conditions: reports: denies history - PRIOR SURGERIES/PROCEDURES Surgical/Procedure History: reports: breast (biopsy), other (R oophrectomy) - IMMUNIZATION STATUS Childhood Immunizations: See Nurse Assessment Flu Vaccine: See Nurse Assessment - FAMILY HISTORY Family History: reviewed, not pertinent Physical Exam- Neurological - Physical Exam-Neuro General Appearance: alert, thin, other (chronically ill appearing) Eye Exam: bilateral eye: normal inspection, PERRL HENMT: normocephalic/atraumatic Head Injury: no evidence of injury Neck: supple, normal inspection Respiratory: chest non-tender, no respiratory distress, no accessory muscle use, decreased breath sounds (bilaterally) Cardiovascular: normal peripheral pulses, regular rate, rhythm, no murmur Abdominal Exam: normal bowel sounds, non tender, 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 Exam: abnormal speech, facial asymmetry, facial droop Coordination/Gait: other (will not cooperate for exam) Motor/Sensory: weak motor strength RUE, weak motor strength LUE, other (will not cooperate for exam) Neurologic: other (will not cooperate for exam) Integumentary: normal color, warm/dry Psych/Mental Status: depressed affect - Glascow Coma Scale Best Eye Response: (4) open spontaneously Best Verbal Response: (5) oriented Best Motor Response: (6) obeys commands Total Glascow Score: 15 Progress - PLAN OF CARE/RESULTS Progress/Plan/Lab Results: Vital Signs - 8 hr 04/13/19 06:53 Temperature 98.5 F Pulse Rate 83 Respiratory Rate 18 Blood Pressure 180/91 O2 Sat by Pulse Oximetry 97 Laboratory Results - last 24 hr 04/13/19 04/13/19 04/13/19 06:48 06:48 06:48 WBC 7.45 RBC 4.60 Hgb 15.5 Hct 45.4 MCV 98.7 MCH 33.7 H MCHC 34.1 RDW Std Deviation 11.6 Plt Count 239 MPV 12.1 H Immature Gran % (Auto) 0.5 Neut % (Auto) 66.0 Lymph % (Auto) 21.2 Worth % (Auto) 11.0 H Eos % (Auto) 1.2 Baso % (Auto) 0.1 Immature Gran # (Auto) 0.04 Neut # (Auto) 4.91 Lymph # (Auto) 1.58 Worth # (Auto) 0.82 H Eos # (Auto) 0.09 Baso # (Auto) 0.01 PT INR PTT (Actin FS) Sodium 131 L Potassium 3.8 Chloride 92 L Carbon Dioxide 23 L Anion Gap 16 BUN 5 L Creatinine 0.5 Estimated GFR/1.73 m2 > 60 BUN/Creatinine Ratio 10 Glucose 100 Calculated Osmolality 260 Calcium 9.6 Total Bilirubin 0.40 AST 32 H ALT 19 Alkaline Phosphatase 118 H Troponin T High Sens 12 Total Protein 8.4 H Albumin 4.5 Globulin 4.0 Albumin/Globulin Ratio 1.0 Urine Source Urine Color Urine Turbidity Urine pH Ur Specific [place] Urine Protein Ur Glucose (Stick) Ur Ketones (Stick) Urine Blood Urine Nitrite Urine Bilirubin Urobilinogen Dipstick Urine Leukocytes Urine WBC (Auto) Urine RBC (Auto) U Epithel Cells (Auto) Urine Bacteria (Auto) Urine Opiates Screen Ur Oxycodone Screen Urine Methadone Screen U Propoxyphene Qual Ur Barbituates Screen Ur Tricyclics Screen Ur Phencyclidine Scrn Ur Amphetamines Screen U Methamphetamines Scrn U Benzodiazepines Scrn Urine Cocaine Screen U Cannabinoids Screen 04/13/19 04/13/19 04/13/19 06:48 07:28 07:28 WBC RBC Hgb Hct MCV MCH MCHC RDW Std Deviation Plt Count MPV Immature Gran % (Auto) Neut % (Auto) Lymph % (Auto) Worth % (Auto) Eos % (Auto) Baso % (Auto) Immature Gran # (Auto) Neut # (Auto) Lymph # (Auto) Worth # (Auto) Eos # (Auto) Baso # (Auto) PT 12.8 INR 0.92 PTT (Actin FS) 27.4 Sodium Potassium Chloride Carbon Dioxide Anion Gap BUN Creatinine Estimated GFR/1.73 m2 BUN/Creatinine Ratio Glucose Calculated Osmolality Calcium Total Bilirubin AST ALT Alkaline Phosphatase Troponin T High Sens Total Protein Albumin Globulin Albumin/Globulin Ratio Urine Source CLEAN CATCH Urine Color YELLOW Urine Turbidity CLEAR Urine pH 6.5 Ur Specific [place] 1.008 Urine Protein NEGATIVE Ur Glucose (Stick) NEGATIVE Ur Ketones (Stick) NEGATIVE Urine Blood NEGATIVE Urine Nitrite NEGATIVE Urine Bilirubin NEGATIVE Urobilinogen Dipstick NORMAL Urine Leukocytes NEGATIVE Urine WBC (Auto) <10 Urine RBC (Auto) <10 U Epithel Cells (Auto) <10 Urine Bacteria (Auto) NEGATIVE Urine Opiates Screen NONE DETECTED Ur Oxycodone Screen NONE DETECTED Urine Methadone Screen NONE DETECTED U Propoxyphene Qual NONE DETECTED Ur Barbituates Screen NONE DETECTED Ur Tricyclics Screen NONE DETECTED Ur Phencyclidine Scrn NONE DETECTED Ur Amphetamines Screen NONE DETECTED U Methamphetamines Scrn NONE DETECTED U Benzodiazepines Scrn PRESUMPTIVE POSITIVE A Urine Cocaine Screen NONE DETECTED U Cannabinoids Screen NONE DETECTED Orders Category Date Time Status Cardiac Monitoring DIRECTED Care 04/13/19 07:19 Active Saline Loc NOW Care 04/13/19 07:19 Active CHEST-PORTABLE [RAD] Stat Exams 04/13/19 07:[address] HEAD W/O CONTRAST [CT] Stat Exams 04/13/19 07:03 Completed ABG [RESP] Routine Lab 04/13/19 08:07 Ordered ACETAMINOPHEN [TDM] Stat Lab 04/13/19 08:11 Ordered ALCOHOL BLOOD Stat Lab 04/13/19 08:11 Ordered AMMONIA [CHEM] Stat Lab 04/13/19 08:11 Ordered CBC WITH ELECTRONIC DIFF [HEME] Stat Lab 04/13/19 06:48 Completed COMPREHENSIVE METABOLIC PANEL [CHEM] Stat Lab 04/13/19 06:48 Completed LACTATE, PLASMA [CHEM] Stat Lab 04/13/19 08:05 Uncollected PROTIME WITH INR [COAG] Stat Lab 04/13/19 06:48 Completed PTT [COAG] Stat Lab 04/13/19 06:48 Completed SALICYLATES [TDM] Stat Lab 04/13/19 08:07 Ordered TROPONIN T HIGH SENSITIVITY Stat Lab 04/13/19 06:48 Completed URINALYSIS W/POSS RFLX CULT [URINALYSIS] Stat Lab 04/13/19 07:28 Completed URINE DRUG SCREEN PL Stat Lab 04/13/19 07:28 Completed 0.9% Sodium Chloride Inj [Ns] 1,000 ml Med 04/13/19 08:04 Active IV 999 mls/hr EKG [EKG] Stat Ther 04/13/19 07:[address] Head negative, only showing old changes. Unsure if patient is having another stroke as she will not cooperate for NIHSS. Spoke to Dr Garcia insulation helper for hospitalist who accepted patient for admission. States he will put orders in for her. Result Diagrams: 04/13/19 06:48 04/13/19 06:48 - EKG 1 Time of EKG reading by physician:: 07:05 EKG Read and Signed by:: Stephanie Rubalcava EKG Interpretation (*Must complete 3 of following elements*): Normal Rate: 71 Rhythm: NSR [place]: normal QRS: normal [place] Interval: normal ST Wave: normal - XRAY 1 XRAY Study: Chest (XAM: CHEST-PORTABLE - 04/13/2019 HISTORY: stroke like symptoms TECHNIQUE: Portable chest COMPARISON: 08/14/2018 FINDINGS: Heart size appears within normal limits. The lungs appear essentially clear. There is no substantial pleural effusion or pneumothorax identified. IMPRESSION: No evidence of acute disease. Electronically signed by Mauro Sam 04/13/2019 8:06 AM) - CT/MRI 1 MRI Study: Chest (EXAM: CT HEAD W/O CONTRAST - 04/13/2019 HISTORY: left hand weakness TECHNIQUE: CT head without contrast COMPARISON: 01/16/2019 FINDINGS: There is encephalomalacia consistent with old infarct at the left frontoparietal parasagittal region similar to prior. There is an old lacunar infarct at the right upper cerebellum similar to prior. There are chronic microvascular ischemic changes. There is no indication of recent infarct, although acute infarcts may not be immediately visible. There is no evidence of intracranial hemorrhage, mass effect, or midline shift. There is no evidence of skull fracture. There is mild paranasal sinus disease noted at the left maxillary sinus. IMPRESSION: Chronic ischemic changes, including old left frontoparietal region infarct, similar to prior. No visible acute intracranial abnormality. No hemorrhage or mass effect. Mild paranasal sinus disease at the left maxillary sinus. This exam was performed using automated exposure con trol, adjustment of mA or kV according to patient size, and/or use of iterative reconstruction technique.) - CONSULTS/PCP/HOSPITALIST Notification #1 *Consult/PCP/Hospitalist*: Dr Soler Time Discussed: 08:20 Consult Disposition: Admit Departure - Departure Date of Disposition Decision: 04/13/19 Time of Disposition Decision: 08:23 DIAGNOSIS: Hyponatremia, History of CVA (cerebrovascular accident), Numbness and tingling in left arm, History of alcohol abuse Disposition: ADMITTED INPATIENT 09 Certified Medical Emergency: Emergent Condition: Stable - Critical Care Note This patient required my direct & personal management of CC.: No Attestation - Physician/ SHERIE Attestation Patient care was provided by Advanced Practice Provider:: No The physician spent face to face time with patient:: Yes Advanced Practice Provider documentation review:: Supervising physician onsite and consulted in the evaluation and care of this patient. The physician did have a face to face encounter with the patient.
--- NOTE | 2019-04-13 08:29 | EKG Report ---
Test Performed on : 04/13/2019 07:00:04 AM Test Reason : Stroke like symptoms Blood Pressure : / mmHG Vent. Rate : 071 BPM Atrial Rate : 071 BPM P-R Int : 132 ms QRS Dur : 074 ms QT Int : 402 ms P-R-T Axes : 063 018 051 degrees QTc Int : 436 ms Normal sinus rhythm. Possible Left atrial enlargement Low voltage QRS Borderline ECG When compared with ECG of 15-AUG-2018 03:34, No significant change was found Unconfirmed Result
[2019-04-13 08:44] LABS: BE 0.1 mmoll (-3.0-3.0); BLOOD TYPE ARTERIAL; HCO3-(ACT) 24.8 mmoll (20.0-26.0); METHB 1.3 % (0.0-1.5); O2(CT) 18.8 mL/dL (15.0-23.0); PCO2(98.6) 35 mmHg (35-45); PO2(98.6) 72 mmHg (60-100); SAMPLE BLOOD; pH(98.6) 7.44 (7.35-7.45)
[2019-04-13 09:13] LABS: O2HB 89.3 % (95.0-99.0)
[2019-04-13 09:16] LABS: ALLEN TEST YES; MODALITY ROOM AIR
[2019-04-13] MEDS ORDERED: ATARAX PO PRN (10:08)
--- NOTE | 2019-04-13 10:53 | Vascular Study Report ---
EXAM: Carotid Ultrasound - 04/13/2019 HISTORY: ? cva TECHNIQUE: Carotid flow studies COMPARISON: None. FINDINGS: There is questionable mild right atherosclerotic plaquing at the bulb/proximal internal carotid on the right. Maximum systolic velocity in the right internal carotid is 56 cm/s, and maximum diastolic velocity is 27 cm/s. The right internal to common carotid systolic velocity ratio is 0.89. The flow velocities and ratio suggest 0-39% stenosis at the right internal carotid. The right vertebral demonstrates antegrade flow. There is mild atherosclerotic plaquing at the carotid bulb and proximal internal carotid on the left. Maximum systolic velocity in the left internal carotid is 63 cm/s, and maximum diastolic velocity is 22 cm/s. The left internal to common carotid systolic velocity ratio is 0.73. The flow velocities and ratio suggest 0-39% stenosis at the left internal carotid. The left vertebral demonstrates antegrade flow. IMPRESSION: 0-39% stenosis at right internal carotid. 0-39% stenosis at left internal carotid. Electronically signed by Mauro Sam 04/13/2019 10:50 AM
--- NOTE | 2019-04-13 11:48 | HISTORY AND PHYSICAL ---
PRIMARY CARE PHYSICIAN: Dr. Silviano Garcia. CHIEF COMPLAINT: Left arm numbness. HISTORY OF PRESENT ILLNESS: This is a 68-year-old female with a history of alcohol dependence, alcohol withdrawal seizures, previous stroke with right-sided hemiplegia, who presents to the emergency room complaining of left arm numbness. She cannot remember when the numbness started. She does not remember if it was last night or this morning. She denies any injury, any pain. She denies any numbness, tingling, or weakness to any other part of her body. She states that her right arm and hand weakness are unchanged from her prior stroke. She does state that she drinks alcohol. She states that her last drink was 10 days ago, that she has been unable to get alcohol during this 10 days. She stated that the last day that she drank, she states that normally she drinks 5 beers a day, and she drank more than [address] of the head revealed chronic ischemic changes including an old left frontoparietal region infarct. No visible acute intracranial abnormality. No hemorrhage or mass effect. Mild paranasal sinus disease at the left maxillary sinus. PAST MEDICAL HISTORY: 1. Alcohol withdrawal seizures. 2. Alcohol dependence. 3. Chronic obstructive pulmonary disease. 4. Hypothyroid. 5. Prior CVA with right-sided weakness. PAST SURGICAL HISTORY: Ovarian surgery and breast surgery. SOCIAL HISTORY: She smokes a pack a day. She usually drinks 5 beers a day. She denies any illicit drug use. ALLERGIES: Elavil. FAMILY HISTORY: Positive for hypertension and "some lung something". REVIEW OF SYSTEMS: Discussed with patient with pertinent positives stated in the HPI. She denied any syncope or dizziness, chest pain or palpitations, any fevers or chills, cough, any nausea, vomiting, diarrhea, constipation, black or bloody vomitus or stools, any hematuria, dysuria, frequency, urgency. PHYSICAL EXAMINATION: GENERAL: This is a 68-year-old female who is sitting up in the bed on the medical-surgical floor, in no distress. VITAL SIGNS: Blood pressure is 143/80, with a heart rate of 77, respirations are 20, temperature is 98.5 degrees oral, with room air saturations 96 to 97 percent. EYES: Pupils are equal, round, react to light. EOMs are intact. Sclerae are anicteric. HENT: Head is normocephalic, atraumatic. Mucous membranes are moist. NECK: Supple with trachea midline. CARDIOVASCULAR: Regular rate and rhythm. S1 and S2 are noted. No appreciable murmurs. She has no lower extremity edema. She denies any calf tenderness bilaterally, with peripheral pulses palpable x4 extremities. PULMONARY: Breath sounds are clear with no increased work of breathing noted. Chest rises and falls symmetric with respiration. Chest wall is nontender to palpation. GASTROINTESTINAL: Abdomen is soft, nontender, nondistended, with bowel sounds in all 4 quadrants. NEUROLOGIC: She is alert and oriented x3. Forehead is spared. Pupils are equal, round, react to light. She has equal nasal flaring. No tongue or uvula deviation. Speech is clear. No plantar drift. When I asked the patient to squeeze my hand, she states that she is unable to on the right. She holds her hand up with fingers hyperextended, although when I handed her the remote control for the TV, she was able to news gathering technician the remote control and hold it. When I did comment about this to the patient, she dropped the remote on the floor. I am unable to check for muscle strength as she cooperates intermittently. LABS: WBC is 7.4, with hemoglobin 15.5, hematocrit 45.4, and platelets 239,000. Sodium is 131, potassium 3.8, BUN 5, creatinine 0.5, with a glucose of 100. Urinalysis is essentially negative. Urine drug screen is presumptive positive for benzodiazepines. Blood alcohol is 0. Chest x-ray revealed no evidence of acute disease. A CT of the head, chronic ischemic changes including old frontoparietal region infarct similar to prior. No visible acute intracranial abnormality. No hemorrhage or mass effect. Mild paranasal sinus disease at the left maxillary sinus, EKG revealed sinus rhythm at a rate of 71. ASSESSMENT AND PLAN: 1. Hyponatremia. 2. History of cerebrovascular accident with right-sided weakness. 3. Numbness and tingling to left arm. 4. History of alcohol abuse in a patient who states her last drink was 10 days ago. 5. Continued nicotine abuse. PLAN: 1. The patient has been admitted to the medical-surgical floor, placed on telemetry which we will continue. 2. Neurological checks every 4 hours for 24 hours. 3. Check a CBC, CMP, magnesium, and TSH in the morning. 4. Carotid Doppler bilateral. 5. We will identify her home medications and continue as appropriate. 6. Physical therapy will be consulted. 7. We will give hydroxyzine 25 mg q.6 hours p.r.n. for anxiety, 8. Plan was discussed with Dr. Garcia. Further treatments pending hospital course. Dictated by AFSHIN Kraus for Silviano Garcia MD cc: AFSHIN Kraus MD
[2019-04-13] MEDS ORDERED: ATIVAN IV ONE (14:00)
[2019-04-13] MEDS: LIBRIUM PO SCH (20:05)
[2019-04-13] MEDS: NEURONTIN PO SCH (20:05)
--- NOTE | 2019-04-13 21:52 | HISTORY AND PHYSICAL ---
ADDENDUM: Patient presented to the hospital with left hand weakness. Oddly enough, her left hand weakness is not reproducible. When asked to manager of merchandising my hand, she extends her fingers tightly, stating that she has no strength in her hand. However, upon relaxing her arm, her hand and fingers retract to the normal position. The patient does state that she needs benzodiazepines. She denies drinking. States she has not drank in 10 days, but notes that she has a delayed withdrawal effect. Discussed with her that is not actually the way it works, and again inquired on her last drink. She is positive for benzodiazepines without a prescription. Certainly expect that she has either been taking benzodiazepines or drinking at home. Regardless, this does not appear to be an acute stroke type event. We will admit and will follow. cc: Silviano Garcia MD
[2019-04-14] MEDS: LIBRIUM PO SCH ×4 (01:15→21:02)
[2019-04-14] MEDS: SYNTHROID PO SCH (06:04)
[2019-04-14] MEDS: NICODERM PATCH TD PRN (06:18)
[2019-04-14 06:39] LABS: HEMATOCRIT 40.3 % (37.0-47.0); HEMOGLOBIN 13.6 g/dL (12.0-16.0); MCH 34.5 PG (27-31); MCHC 33.7 g/dL (33-37); MCV 102.3 FL (81-99); RBC 3.94 XMIL (4.2-5.4); RDW 11.9 % (11.5-14.5); WBC 5.31 X1000 (4.8-10.8)
[2019-04-14 06:47] LABS: AGAP 12; ALBUMIN 3.5 g/dL (3.5-5.0); ALKALINE PHOSPHATASE 97 U/L (32-104); BUN 7 mg/dL (8-22); CALCIUM 8.9 mg/dL (8.8-10.2); CHLORIDE 101 mmol/L (98-107); COSMO 268; CREATININE 0.4 mg/dL (0.5-0.9); ESTIMATED GFR > 60; GLUCOSE 90 mg/dL (70-104); GOT 22 U/L (10-30); GPT 14 U/L (10-36); MAGNESIUM 1.6 mg/dL (1.5-2.7); POTASSIUM 3.7 mmol/L (3.5-5.1); SODIUM 135 mmol/L (136-145); TCO2 22 mmol/L (25-35); TOTAL PROTEIN 6.4 g/dL (6.3-8.3)
[2019-04-14] MEDS: NEURONTIN PO SCH ×2 (09:06→21:02)
--- NOTE | 2019-04-14 22:40 | PROGRESS NOTE ---
DATE: 04/14/2019 SUBJECTIVE: Patient now admits to drinking heavily the day before coming to the hospital. She did have an eventful night where she started having some significant withdrawal symptoms and therefore was started on Librium. PHYSICAL EXAM: Temperature 98, pulse 64, respiratory rate 18, BP 103/58.General: Patient is pleasant. She is in no current respiratory distress. She is much more awake and alert today than she was on admission. HEENT: Normocephalic. Neck: Supple. Cardiovascular: Regular rate. Chest: Clear, nonlabored. Abdomen: Soft, nondistended. Extremities: Moves all extremities. ASSESSMENT: 1. Acute alcohol withdrawal. 2. Hyponatremia 3. History of cerebrovascular accident. PLAN: We will continue patient in the hospital. Continue Librium taper. We will monitor for withdrawal. cc: Silviano Garcia MD
[2019-04-15] MEDS: LIBRIUM PO SCH ×4 (04:25→21:05)
[2019-04-15] MEDS: SYNTHROID PO SCH (06:01)
[2019-04-15] MEDS: NEURONTIN PO SCH ×2 (08:46→21:05)
[2019-04-15] MEDS: NICODERM PATCH TD PRN (10:50)
--- NOTE | 2019-04-15 21:31 | PROGRESS NOTE ---
DATE: 04/15/2019 SUBJECTIVE: Patient has no new complaints. States she is starting to feel better. Is improving. PHYSICAL EXAM: Temperature 98, pulse 76, respiratory rate 16, BP 116/67.General: Patient is an unfortunate individual who has been admitted to the hospital multiple times with alcohol withdrawal type symptoms. HEENT: Normocephalic. Neck: Supple. Cardiovascular: Regular rate. Chest: Clear, nonlabored. Abdomen: Soft, nondistended. Extremities: Moves all extremities. ASSESSMENT: 1. Alcohol withdrawal, continues to improve. We will continue to wean Librium. 2. Hyponatremia secondary to alcoholism. 3. Metabolic acidosis. 4. Numbness and tingling in left arm, appears to have resolved as she is sobering up. PLAN: We will continue in the hospital, continue to wean Librium. Further orders as needed. Hopefully home over the next 1 or 2 days. cc: Silviano Garcia MD MTDD
[2019-04-16] MEDS: LIBRIUM PO SCH (03:16)
[2019-04-16] MEDS: SYNTHROID PO SCH (06:01)
[2019-04-16] MEDS: NEURONTIN PO SCH (08:03)
[2019-04-16 08:08] LABS: HEMATOCRIT 43.5 % (37.0-47.0); HEMOGLOBIN 14.4 g/dL (12.0-16.0); MCH 33.7 PG (27-31); MCHC 33.1 g/dL (33-37); MCV 101.9 FL (81-99); MPV 11.9 FL (7.4-10.4); RBC 4.27 XMIL (4.2-5.4); RDW 12.1 % (11.5-14.5); WBC 6.36 X1000 (4.8-10.8)
[2019-04-16 08:20] LABS: AGAP 12; ALBUMIN 4.2 g/dL (3.5-5.0); ALKALINE PHOSPHATASE 112 U/L (32-104); BUN 17 mg/dL (8-22); CALCIUM 9.9 mg/dL (8.8-10.2); CHLORIDE 94 mmol/L (98-107); COSMO 268; CREATININE 0.4 mg/dL (0.5-0.9); ESTIMATED GFR > 60; GLUCOSE 91 mg/dL (70-104); GOT 25 U/L (10-30); GPT 14 U/L (10-36); MAGNESIUM 1.7 mg/dL (1.5-2.7); POTASSIUM 4.5 mmol/L (3.5-5.1); SODIUM 133 mmol/L (136-145); TCO2 27 mmol/L (25-35); TOTAL PROTEIN 7.7 g/dL (6.3-8.3)
[2019-04-16 08:25] VITALS: BP 117/50
[2019-04-16] MEDS ORDERED: LIBRIUM PO SCH ×2 (09:00→21:00)
[2019-04-16] MEDS ORDERED: FLU VACCINE IM ONE (11:01)
[2019-04-16] MEDS ORDERED: PNEUMOVAX 23 IM ONE (11:01)
--- NOTE | 2019-04-17 02:48 | DISCHARGE SUMMARY ---
ADMISSION DATE: 04/13/2019 DISCHARGE DATE: 04/16/2019 ADDENDUM: Patient seen and examined by myself. Full note dictated and discussed with nurse practitioner. On discharge, patient is awake, alert. She is oriented. She is in no respiratory distress, still tremulous and weak. We would prefer her to go to rehab but patient declined. We also would prefer that she stop drinking, although this has not been the case recently. This time she was admitted with left upper extremity weakness that was due to her alcoholism. She has been drinking heavily again. DISPOSITION: Patient to be discharged home. Again, we discussed with her that she needs to consider further inpatient treatment to hopefully stop drinking alcohol completely. No other changes made on diet or activity. cc: Silviano Garcia MD
--- NOTE | 2019-04-17 04:22 | DISCHARGE SUMMARY ---
ADMISSION DATE: 04/13/2019 DISCHARGE DATE: 04/16/2019 DIAGNOSES: 1. Alcohol withdrawal. 2. Hyponatremia secondary to alcoholism. 4. Numbness and tingling in the left arm that has resolved. 5. History of cerebrovascular accident with right-sided weakness. DIAGNOSTICS: 1. CT of the head revealed chronic ischemic changes including old frontoparietal region infarct similar to prior 01/16/2019. No visible acute intracranial abnormality. No hemorrhage or mass effect. 2. Carotid Doppler study revealed 0 to 39% stenosis in the right internal carotid and the left internal carotid. 3. Urine culture revealed no pathogenic growth. HOSPITAL COURSE: Ms. Crocker presented to the emergency room complaining of left arm numbness which resolved while in the hospital. During the hospitalization when we re-evaluated her, she would change her description of when exactly the numbness appeared, where exactly it was on her arm and once while talking to myself she did state that the numbness was never on her left. It was only on her right side after. Speaking with Dr. Garcia, she did admit to drinking heavily the day before coming to the hospital. Prior to this, her family member stated that she did not drink. They were adamant that she did not. She did tell myself and some of the nurses that she drank a wine cooler and heavy liquor daily although her family members did not know. She was on started on a Librium taper, monitored throughout the hospitalization. Withdrawal did improve. She was hyponatremic with a sodium of 131. This has improved with IV hydration. Today, Ms. Crocker feels better. She has no numbness or tingling. She has no complaints. She states that she feels she is almost back to her normal. During the hospitalization she did eat 100% of all her meals without any nausea or vomiting. DISCHARGE VITAL SIGNS: Blood pressure is 117/50 with a heart rate of 73, respirations 18, temperature is 98 degrees with room air saturations of 98. DISCHARGE PHYSICAL EXAMINATION: Cardiovascular: Regular rate and rhythm. S1 and S2 appreciated. She has no lower extremity edema. She denies any calf tenderness bilateral with peripheral pulses palpable x4 extremities. Pulmonary: Breath sounds clear no increased work of breathing noted. Chest rises and falls symmetric with respiration. Gastrointestinal: Abdomen is soft, nontender, nondistended with bowel sounds in all 4 quadrants. Neurologic: She is alert and oriented. DISCHARGE MEDICATIONS: 1. Librium 25 mg p.o. b.i.d., #8. 2. Levothyroxine 75 mcg p.o. daily. 3. Neurontin 300 mg p.o. b.i.d. FOLLOW-UP: 1. She is follow up Dr. Garcia in 1 to 2 weeks. She needs to call his office Friday to schedule an appointment. 2. [facility]. This has been arranged by social work. 3. She is being discharged home in stable condition with family members. TIME: This is a greater than [address] Garcia as well as myself did speak to the patient more than once about the perils of continuing to drink. She did tell me that at this time she is not ready to stop drinking. Dictated by AFSHIN Kraus for Silviano Garcia MD cc: AFSHIN Kraus MD [facility]
== END 2019-04-16 11:19 | disposition home health service (06) | DRG 897 ==
LOC: P.ED 06:51 → P.MEDSURG 09:06
PROVIDERS: ATTEND Family Medicine